=== PATIENT | female | born 2000 | race Caucasian/White ===

== ENCOUNTER 2019-04-02 16:06 | Emergency (ER) | payer OTHER ==
[~2019-04-02] VITALS: Ht 170.2 cm; Wt 73.6 kg
[~2019-04-02 16:06] MED LIST: BIRTH CONTROL; CEPH-263 PO; NITR100C62 PO; PHEN100T82 PO; SULF1TAB24 PO; antibiotic
[2019-04-02 16:08] VITALS: BP 125/66
--- NOTE | 2019-04-02 16:14 | PHYS DOC ---
Past History Past Medical History: No Pertinent History, STD Past Surgical History: No Surgical History Smoking: Non-smoker Alcohol Use: None Drug Use: None Adult General Chief Complaint Chief Complaint: LACERATION/AVULSION HPI HPI 18-year-old female presents with report of laceration to palm of right hand wh ich occurred just prior to arrival. Patient reports she was trying to cut a roast. Patient reports tetanus up-to-date. Reports she currently is 10 months . Patient does not want suture repair but was concerned that laceration might need skin glue. Review of Systems Review of Systems Constitutional: Denies fever or chills : Denies dysuria or hematuria Musculoskeletal: Denies back pain or joint pain Integument: Denies rash; reports laceration Neurologic: Denies headache, focal weakness or sensory changes Complete systems were reviewed and found to be within normal limits, except as documented in this note. Allergies Allergies Allergies Coded Allergies Type Severity Reaction Last Updated Verified No Known Drug Allergies 12/07/13 No Physical Exam Physical Exam Constitutional: Well developed, well nourished, no acute distress, non-toxic appearance HENT: Normocephalic, atraumatic Eyes: Conjunctiva normal, no discharge Neck: Normal range of motion, supple Cardiovascular: Right radial pulse +2 Lungs & Thorax: No respiratory distress, no accessory muscle use Skin: Warm, dry, no erythema, 2 cm superficial laceration to right palm without active bleeding Extremities: Right hand full ROM, no edema Neurologic: Alert and oriented X 3, no focal deficits noted Psychologic: Affect normal, judgement normal EKG EKG [] Radiology/Procedures Radiology/Procedures [] Course & Med Decision Making Course & Med Decision Making Patient presents with superficial laceration to right palm. Tetanus up-to-date. No active bleeding appreciated. Given how superficial wound was no repair required. Wound cleaned and dressed with empiric antibiotic ointment placement. Patient stable for discharge with outpatient follow-up with PCP. Discussed findi ngs and plan with patient, who acknowledges understanding and agreement. Dragon Disclaimer Dragon Disclaimer This electronic medical record was generated, in whole or in part, using a voice recognition dictation system. Departure Departure: Impression: Primary Impression: Laceration Disposition: 01 HOME, SELF-CARE Condition: STABLE Referrals: CHARITY MAHMOOD (PCP) Patient Instructions: Laceration Care, Adult, [id number] Additional Instructions: Do not soak your wound. You may shower. Clean wound daily with soap and water. Change dressing 2 times daily. Use over the counter antibiotic ointment with each dressing change. Use over the counter Tylenol and Ibuprofen for pain or discomfort. ANDRE SANCHEZ DO Apr 02, 2019 16:13
[2019-04-02] MEDS ORDERED: NEOMY/BACITR/POLYMYXIN OINT PACKET. TP ONE (16:15)
== END 2019-04-02 16:14 | disposition home or self-care (01) ==
LOC: ER 16:06
DX: S61.411A Laceration without foreign body of right hand, initial encounter (principal); W26.0XXA Contact with knife, initial encounter; Y93.89 Activity, other specified; Y92.89 Other specified places as the place of occurrence of the external cause; Y99.8 Other external cause status
CPT/HCPCS: 99283

== ENCOUNTER 2020-08-01 06:02 | Emergency (ER) | payer OTHER ==
[~2020-08-01] VITALS: Ht 170.2 cm; Wt 90.0 kg
[2020-08-01 06:02] VITALS: BP 107/71
[2020-08-01] MEDS ORDERED: DEXAMETHASONE 4 MG TABLET PO ONE (06:15)
--- NOTE | 2020-08-01 06:15 | PHYS DOC ---
Past History Past Medical History: STD Past Surgical History: No Surgical History Smoking: Non-smoker Alcohol Use: None Drug Use: None General Adult EDM: Chief Complaint: Sore throat and nasal congestion HPI: HPI: 20-year-old female presents with her 9-month-old daughter with 2-day history of nasal congestion and sore throat. Patient reports her daughter has had symptoms of nasal congestion and slight cough for 1 week. Child does attend daycare. Denies known exposure to COVID-19. Mother reports she has not experienced any fever or chills but felt her daughter did have some slight fever earlier this morning. Patient denies any . Patient concerned she might have a viral infection versus seasonal allergies. Patient reports she just returned from [place]. Review of Systems: Review of Systems: Constitutional: Denies fever or chills Eyes: Denies redness or eye pain HENT: Reports nasal congestion and sore throat Respiratory: Denies cough or shortness of breath Cardiovascular: Denies chest pain or palpitations GI: Denies abdominal pain, nausea, or vomiting : Denies dysuria or hematuria Musculoskeletal: Denies back pain or joint pain Integument: Denies rash or skin lesions Neurologic: Denies headache, focal weakness or sensory changes Complete systems were reviewed and found to be within normal limits, except as documented in this note. Allergies: Allergies: Allergies Coded Allergies Type Severity Reaction Last Updated Verified No Known Drug Allergies 12/07/13 No Physical Exam: PE: Constitutional: Well developed, well nourished, no acute distress, non-toxic appearance HENT: Normocephalic, atraumatic, pharynx erythematous with some signs of postnasal drip, no exudate noted Eyes: Conjunctiva normal, no discharge Neck: Normal range of motion, no tenderness, supple Lungs & Thorax: No respiratory distress, equal chest rise and fall Abdomen: Soft, no tenderness Skin: Warm, dry, no erythema, no rash Neurologic: Alert and oriented X 3, no focal deficits noted Psychologic: Affect normal, judgment normal EKG: EKG: [] Radiology/Procedures: Radiology/Procedures: [] Heart Score: C/O Chest Pain: N/A Course & Med Decision Making: Course & Med Decision Making Patient presents with URI type symptoms including nasal congestion and sore throat. Patient also presents with her daughter who is a 9-month-old who has had 1 week long history of "low-grade fever ", nasal congestion, and cough. Child does attend daycare. Mother and child recently returned from a trip to [place]. Patient denies any known COVID-19 exposure. COVID-[address] COVID-19 testing was ordered along with rapid strep which patient was unable to tolerate. Patient declined any further attempts. Symptomatic oral steroid provided. Will prescribe empiric antibiotic with instructions to watch and wait. Patient signed a legal document regarding her refusal for rapid strep and Covid testing. Patient acknowledges limitations by not being able to order these test. Patient stable for discharge with outpatient follow-up with PCP. Discussed findings and plan with patient, who acknowledges understanding and agreement. Dragon Disclaimer: Dragon Disclaimer: This electronic medical record was generated, in whole or in part, using a voice recognition dictation system. Departure Departure: Impression: Primary Impression: Upper respiratory infection Qualified Codes: J06.9 - Acute upper respiratory infection, unspecified Additional Impression: Suspected 2019 novel coronavirus infection Disposition: 01 MD HOME SELF CARE/HOMELESS Condition: STABLE Referrals: ALDEN SARABIA (PCP) Patient Instructions: Upper Respiratory Infection, Adult, [id number] Additional Instructions: Hold antibiotics for 48 hours. If symptoms worsen or for fever > 100.3 F after 48 hours then start antibiotics as prescribed. Use humidifier at night when sleeping. Scripts Amoxicillin/Potassium Clav (AUGMENTIN [id number] TABLET) 1 Each Tablet 1 TAB PO BID for pharyngitis for 7 Days, #14 TAB 0 Refills Prov: ANDRE SANCHEZ DO 08/01/20 ANDRE SANCHEZ DO Aug 01, 2020 06:15
[2020-08-01] MEDS ORDERED: AMOX1TAB61 PO (07:06)
== END 2020-08-01 07:32 | disposition home or self-care (01) ==
LOC: ER 06:02
DX: J06.9 Acute upper respiratory infection, unspecified (principal); R09.81 Nasal congestion; R05 Cough
CPT/HCPCS: 99283; J8540